=== PATIENT | male | born 1990 | race Caucasian/White ===

== ENCOUNTER 2021-07-22 18:52 | Emergency (ER) | payer MEDICAID ==
[~2021-07-22] VITALS: Ht 170.2 cm; Wt 79.5 kg
[2021-07-22 19:05] VITALS: BP 147/83
[2021-07-22] MEDS ORDERED: LIDOCAINE 1% 10 ML VIAL SQ ONE (19:15)
[2021-07-22] MEDS ORDERED: CEPH500C3 PO (19:52)
== END 2021-07-22 20:25 | disposition home or self-care (01) ==
LOC: EMS 18:54
DX: S61.012A Laceration without foreign body of left thumb without damage to nail, initial encounter (principal); S61.211A Laceration without foreign body of left index finger without damage to nail, initial encounter; W27.8XXA Contact with other nonpowered hand tool, initial encounter; Y93.89 Activity, other specified; Y92.89 Other specified places as the place of occurrence of the external cause; Y99.8 Other external cause status
CPT/HCPCS: 12002; 96372; 99283; J0690; J3490

== ENCOUNTER 2021-08-02 18:45 | Emergency (ER) | payer MEDICAID ==
[~2021-08-02] VITALS: Ht 170.2 cm; Wt 221.6 kg
[~2021-08-02 18:45] MED LIST: CEPH-558 PO
[2021-08-02 20:01] VITALS: BP 116/67
== END 2021-08-02 20:18 | disposition home or self-care (01) ==
LOC: EMS 18:48
DX: S61.012D Laceration without foreign body of left thumb without damage to nail, subsequent encounter (principal); R20.2 Paresthesia of skin; Z48.02 Encounter for removal of sutures; Z79.899 Other long term (current) drug therapy; W45.8XXD Other foreign body or object entering through skin, subsequent encounter
CPT/HCPCS: 99281; Z7502

== ENCOUNTER 2021-12-19 20:09 | Emergency (ER) | payer MEDICAID ==
[~2021-12-19] VITALS: Ht 170.2 cm; Wt 100.0 kg
[2021-12-19] MEDS ORDERED: MAG HYDROX/AL HYDROX/SIMETH 30 ML SUSP UDCUP PO ONE (22:45)
[2021-12-19] MEDS ORDERED: ACETAMINOPHEN 500 MG TABLET PO ONE (22:45)
[2021-12-19] MEDS ORDERED: KETOROLAC TROMETHAMINE 30 MG/ML VIAL IM ONE (22:45)
[2021-12-19] MEDS ORDERED: FAMOTIDINE 20 MG TABLET PO ONE (22:45)
[2021-12-19 22:58] LABS: BASOPHILS % (AUTO) 0.5 % (0.0-2.0); EOSINOPHILS % (AUTO) 3.5 % (1.0-6.0); HEMATOCRIT 41.2 % (41-53); HEMOGLOBIN 14.2 g/dL (13.5-17.5); LYMPHOCYTES % (AUTO) 33.4 % (22.0-44.0); MEAN CORPUSCULAR HEMOGLOBIN 27.4 pg (26.0-34.0); MEAN CORPUSCULAR HGB CONC 34.6 G/dL (31.0-37.0); MEAN CORPUSCULAR VOLUME 79 fL (80-100); MONOCYTES # (AUTO) 0.7 K/uL (0.1-1.0); MONOCYTES % (AUTO) 12.2 % (2.0-9.0); NEUTROPHILS % (AUTO) 50.4 % (40.0-70.0); PLATELET COUNT (AUTO) 221 K/uL (150-450); RED CELL DISTRIBUTION WIDTH 12.8 % (11.5-14.5)
[2021-12-19 23:11] LABS: ANION GAP 1 mmol/L (8-16); CALCIUM, TOTAL 9.2 mg/dL (8.8-10.5); CARBON DIOXIDE 29 mmol/L (22-29); CHLORIDE 103 mmol/L (98-107); CREATININE 0.92 mg/dL (0.60-1.30); GLUCOSE,RANDOM 96 mg/dL (70-110); POTASSIUM 4.1 mmol/L (3.5-5.1); SODIUM SERUM 133 mmol/L (136-145); UREA NITROGEN, BLOOD 9 mg/dL (7-18)
[2021-12-19 23:12] LABS: GLOMERULAR FILTR. RATE CALC > 60 mL/min (>60)
[2021-12-19 23:19] LABS: ALANINE AMINOTRANSFERASE 104 U/L (12-78); ALBUMIN 3.7 g/dL (3.4-5.0); ALKALINE PHOSPHATASE 141 U/L (46-116); ASPARTATE AMINOTRANSFERASE 47 U/L (15-37); BILIRUBIN,TOTAL 0.4 mg/dL (0.1-1.0); LIPASE 114 U/L (73-393); TOTAL PROTEIN, SERUM 7.4 g/dL (6.4-8.2)
[2021-12-20 00:05] VITALS: BP 109/64
== END 2021-12-20 00:47 | disposition home or self-care (01) ==
LOC: EMS 20:10
DX: R10.13 Epigastric pain (principal); R10.11 Right upper quadrant pain; F10.20 Alcohol dependence, uncomplicated
CPT/HCPCS: 99284; 76700; 80053; 83690; 85025; 36415; 96372; G0480; J1885

== ENCOUNTER 2022-04-25 19:34 | Emergency (ER) | payer MEDICAID ==
[~2022-04-25] VITALS: Ht 170.2 cm; Wt 97.7 kg
[2022-04-25 19:37] VITALS: BP 140/87
[2022-04-25] MEDS ORDERED: LIDOCAINE 1% 10 ML VIAL PERC ONE (20:15)
[2022-04-25] MEDS ORDERED: CEPH-558 PO (20:35)
[2022-04-25] MEDS ORDERED: BACI28OI29 TP (20:36)
[2022-04-25] MEDS ORDERED: NEOMYCIN/BACITRACIN/POLYMYXIN B OINTMENT PACKET TP ONE (20:45)
== END 2022-04-25 21:19 | disposition home or self-care (01) ==
LOC: EMS 19:40
DX: S41.112A Laceration without foreign body of left upper arm, initial encounter (principal); W25.XXXA Contact with sharp glass, initial encounter; Y93.E9 Activity, other interior property and clothing maintenance; Y92.89 Other specified places as the place of occurrence of the external cause; Y99.8 Other external cause status
CPT/HCPCS: 99283; 12001; J3490

== ENCOUNTER 2022-05-06 12:53 | Emergency (ER) | payer MEDICAID ==
[~2022-05-06] VITALS: Ht 172.7 cm; Wt 98.0 kg
[~2022-05-06 12:53] MED LIST changes: +BACI28OI29 TP
[2022-05-06 12:59] VITALS: BP 145/70
== END 2022-05-06 13:19 | disposition home or self-care (01) ==
LOC: EMS 12:54
DX: Z48.02 Encounter for removal of sutures (principal)
CPT/HCPCS: 99281; Z7502

== ENCOUNTER 2024-06-06 14:46 | Emergency (ER) | payer MEDICAID, OTHER ==
[~2024-06-06] VITALS: Ht 170.2 cm; Wt 90.0 kg
[~2024-06-06 14:46] MED LIST changes: +BACI28.410 TP; -BACI28OI29 TP
[2024-06-06 14:50] VITALS: BP 151/96; PULSE 92; RESP 20; TEMP 98.2; O2SAT 99
== END 2024-06-06 16:23 | disposition home or self-care (01) ==
LOC: EMS 14:46
DX: S51.812A Laceration without foreign body of left forearm, initial encounter (principal); S61.012A Laceration without foreign body of left thumb without damage to nail, initial encounter; F17.210 Nicotine dependence, cigarettes, uncomplicated; W25.XXXA Contact with sharp glass, initial encounter; Y93.89 Activity, other specified; Y92.89 Other specified places as the place of occurrence of the external cause; Y99.8 Other external cause status
CPT/HCPCS: 12002; 99284; 73090-TC; 73130-TC; Z7502